=== PATIENT | female | born 1985 | race Hispanic/Latino ===

== ENCOUNTER 2021-06-04 10:51 | Emergency (ER) | payer MEDICAID ==
[2021-06-04 11:28] VITALS: BP 108/76
--- NOTE | 2021-06-04 11:51 | Emergency Department Report ---
ED Extremity Problem HPI - General Chief complaint: Extremity Injury, Lower Stated complaint: L KNEE/CALF PAIN Time Seen by Provider: 06/04/21 11:29 Source: patient Mode of arrival: Ambulatory Limitations: No Limitations - History of Present Illness Initial comments: Patient is a 36-year-old female presents emergency room with complaints of left knee pain and left calf pain that began 2 weeks ago. She denies any fall or injury. She states that she noticed some small amount of swelling to the back of the knee. She has been ambulatory. She denies any numbness, weakness, skin changes. She has a past medical history of a torn labrum in her right hip. No allergies to medications. She states that she has been seeing a chiropractor and states that she also went to have a massage but has continued to have the pain. - Related Data Previous Rx's Medication Instructions Recorded Last Taken Type Meloxicam [Mobic] 7.5 mg PO QDAY PRN #14 tablet 06/04/21 Unknown Rx Menthol/Camphor [[place] 1 applicatio TP BID #18 oint...g. 06/04/21 Unknown Rx Ointment] Allergies Allergy/AdvReac Type Severity Reaction Status Date / Time No Known Allergies Allergy Verified 06/04/21 11:27 ED Review of Systems ROS: Stated complaint: L KNEE/CALF PAIN Other details as noted in HPI Comment: All other systems reviewed and negative ED Past Medical Hx - Past Medical History Previous Medical History?: No - Surgical History Past Surgical History?: No - Social History Smoking Status: Never Smoker Substance Use Type: None - Medications Home Medications: Home Medications Medication Instructions Recorded Confirmed Last Taken Type Meloxicam [Mobic] 7.5 mg PO QDAY PRN #14 tablet 06/04/21 Unknown Rx Menthol/Camphor [[place] 1 applicatio TP BID #18 oint...g. 06/04/21 Unknown Rx Ointment] ED Physical Exam - General Limitations: No Limitations General appearance: alert, in no apparent distress - Head Head exam: Present: atraumatic, normocephalic - Eye Eye exam: Present: normal appearance - ENT ENT exam: Present: mucous membranes moist - Extremities Exam Extremities exam: Present: other (mild left posterior knee and left calf ttp, no edema of the LLE, no skin changes, no deformity, no erythema, no increased warmth, FROM of the LLE, no obvious joint laxity, neurovascularly intact) - Neurological Exam Neurological exam: Present: alert, oriented X3 - Psychiatric Psychiatric exam: Present: normal affect, normal mood - Skin Skin exam: Present: warm, dry, intact ED Course Vital Signs 06/04/21 11:26 Temperature 98.0 F Pulse Rate 87 Respiratory 16 Rate Blood Pressure 108/76 [Left] O2 Sat by Pulse 98 Oximetry ED Medical Decision Making - Radiology Data Radiology results: report reviewed Ordering Physician: KAREN THAYER Date of Service: 06/04/21 Procedure(s): XR knee 3V LT Accession Number(s): [id number] cc: KAREN THAYER Fluoro Time In Minutes: LEFT KNEE 3 VIEW(S) INDICATION / CLINICAL INFORMATION: left knee pain COMPARISON: None available. FINDINGS: BONES / JOINT(S): No acute fracture or subluxation. No significant arthritis. SOFT TISSUES: No significant abnormality. ADDITIONAL FINDINGS: None. Signer Name: Chris Chairez MD Signed: 06/04/2021 12:05 PM Workstation Name: [id number] Transcribed By: SB Dictated By: CHRIS CHAIREZ MD Electronically Authenticated By: CHRIS CHAIREZ MD Signed Date/Time: 06/04/21 120 DD/ 1205 TD/TT: Print Ordering Physician: KAREN THAYER Date of Service: 06/04/21 Procedure(s): VL venous duplex LE LT Accession Number(s): [id number] cc: KAREN THAYER DUPLEX DOPPLER LOWER EXTREMITY VEINS, LEFT INDICATION / CLINICAL INFORMATION: left leg pain, left calf pain, posterior knee pain. TECHNIQUE: Duplex doppler imaging was performed through the veins of the left lower extremity using venous compression and other maneuvers. COMPARISON: None available. FINDINGS: LEFT COMMON FEMORAL VEIN: Negative. LEFT FEMORAL VEIN: Negative. LEFT POPLITEAL VEIN: Negative. LEFT CALF VEINS: Negative. ADDITIONAL FINDINGS: None. IMPRESSION: 1. No sonographic evidence for DVT in the left lower extremity. Signer Name: Alexis Velasco MD Signed: 06/04/2021 12:15 PM Workstation Name: [id number] Transcribed By: PRAKASH Dictated By: Alexis Velasco MD Electronically Authenticated By: Alexis Velasco MD Signed Date/Time: 06/04/211214 DD/ 14 TD/TT: - Medical Decision Making Patient is a 36-year-old female presents emergency room with complaints of left knee pain and left calf pain that began 2 weeks ago. She denies any fall or injury. She states that she noticed some small amount of swelling to the back of the knee. She has been ambulatory. She denies any numbness, weakness, skin changes. She has a past medical history of a torn labrum in her right hip. No allergies to medications. She states that she has been seeing a chiropractor and states that she also went to have a massage but has continued to have the pain. Vitals are normal. On exam:mild left posterior knee and left calf ttp, no edema of the LLE, no skin changes, no deformity, no erythema, no increased warmth, FROM of the LLE, no obvious joint laxity, neurovascularly intact. xr left knee: BONES / JOINT(S): No acute fracture or subluxation. No significant arthritis. SOFT TISSUES: No significant abnormality. ADDITIONAL FINDINGS: None. US LLE: 1. No sonographic evidence for DVT in the left lower extremity. pt has no signs of septic joint or cellulitis. could be from overcompensation due to her previous right hip injury. pt given prescription for medication. discussed the importance of outpatient ortho follow up. advised pt Please use medication as prescribed. May use ice 15 minutes at a time, rest, epsom salt bath. Do not use heat or ice while using [place] balm. Follow-up with your primary care doctor. Follow-up with orthopedic doctor. Return to emergency room for any new or worsening symptoms. Critical care attestation.: If time is entered above; I have spent that time in minutes in the direct care of this critically ill patient, excluding procedure time. ED Disposition Clinical Impression: Pain of left calf Left knee pain Qualifiers: Chronicity: acute Qualified Code(s): M25.562 - Pain in left knee Disposition: HOME / SELF CARE / HOMELESS Is pt being admited?: No Does the pt Need Aspirin: No Condition: Stable Instructions: Acute Knee Pain, Adult Additional Instructions: Please use medication as prescribed. May use ice 15 minutes at a time, rest, epsom salt bath. Do not use heat or ice while using [place] balm. Follow-up with your primary care doctor. Follow-up with orthopedic doctor. Return to emergency room for any new or worsening symptoms. Prescriptions: Meloxicam [Mobic] 7.5 mg PO QDAY PRN #14 tablet PRN Reason: pain Menthol/Camphor [[place] Ointment] 1 applicatio TP BID #18 oint...g. Referrals: ADRIANA MCNALLY MD [Staff Physician] - 2-3 Days [facility] [Provider Group] - 2-3 Days IVAN RAYMUNDO MD [Staff Physician] - 2-3 Days [facility] [Provider Group] - 2-3 Days Time of Disposition: 12:30 Print Language: BULGARIAN
--- NOTE | 2021-06-04 12:10 | XRay Report ---
LEFT KNEE 3 VIEW(S) INDICATION / CLINICAL INFORMATION: left knee pain COMPARISON: None available. FINDINGS: BONES / JOINT(S): No acute fracture or subluxation. No significant arthritis. SOFT TISSUES: No significant abnormality. ADDITIONAL FINDINGS: None. Signer Name: Chris Chairez MD Signed: 06/04/2021 12:05 PM Workstation Name: [id number]
--- NOTE | 2021-06-04 12:23 | Vascular Lab Report ---
DUPLEX DOPPLER LOWER EXTREMITY VEINS, LEFT INDICATION / CLINICAL INFORMATION: left leg pain, left calf pain, posterior knee pain. TECHNIQUE: Duplex doppler imaging was performed through the veins of the left lower extremity using venous compr ession and other maneuvers. COMPARISON: None available. FINDINGS: LEFT COMMON FEMORAL VEIN: Negative. LEFT FEMORAL VEIN: Negative. LEFT POPLITEAL VEIN: Negative. LEFT CALF VEINS: Negative. ADDITIONAL FINDINGS: None. IMPRESSION: 1. No sonographic evidence for DVT in the left lower extremity. Signer Name: Alexis Velasco MD Signed: 06/04/2021 12:15 PM Workstation Name: [id number]
== END 2021-06-04 12:44 | disposition home or self-care (01) ==
LOC: ED 10:51
DX: M25.562 Pain in left knee (principal); M79.605 Pain in left leg; Z79.899 Other long term (current) drug therapy
CPT/HCPCS: 99284

== ENCOUNTER 2021-06-22 21:31 | Emergency (ER) | payer MEDICAID ==
[2021-06-22 22:20] VITALS: BP 116/79
[2021-06-22] MEDS ORDERED: KETOROLAC 30 MG/1 ML INJ IM ONE (22:36)
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
== END 2021-06-22 23:37 | disposition home or self-care (01) ==
LOC: ED 21:31
DX: G89.29 Other chronic pain (principal); M54.2 Cervicalgia; Z87.891 Personal history of nicotine dependence; Z98.890 Other specified postprocedural states; Z79.899 Other long term (current) drug therapy
CPT/HCPCS: 96372; 99282; J1885

== ENCOUNTER 2021-08-19 22:37 | Emergency (ER) | payer SELFPAY ==
[2021-08-19] MEDS ORDERED: FLUORESCEIN 1 MG STRIP OP ONE (23:56)
[2021-08-19] MEDS ORDERED: TETRACAINE 0.5% OPHTH SOLN 4ML OU PRN (23:56)
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
[2021-08-20 01:27] VITALS: BP 116/49
== END 2021-08-20 01:30 | disposition home or self-care (01) ==
LOC: ED 22:37
DX: S05.01XA Injury of conjunctiva and corneal abrasion without foreign body, right eye, initial encounter (principal); Z87.891 Personal history of nicotine dependence; Z98.890 Other specified postprocedural states; X58.XXXA Exposure to other specified factors, initial encounter; Y93.89 Activity, other specified; Y92.89 Other specified places as the place of occurrence of the external cause; Y99.8 Other external cause status
CPT/HCPCS: 99282